=== PATIENT | female | born 1935 | race Caucasian/White ===

== ENCOUNTER 2018-01-07 15:25 | Inpatient (IN) | payer OTHER, BC ==
[2018-01-07] MEDS ORDERED: clonazePAM 0.5 MG TAB PO PRN (16:19)
[2018-01-07] MEDS ORDERED: POLYVINYL ALCOHOL OP PRN (16:21)
[2018-01-07] MEDS ORDERED: BISACODYL 10 MG SUPP PR PRN (16:25)
[2018-01-07] MEDS ORDERED: POLYETHYLENE GLYCOL 3350 17 GM PKT PO PRN (16:25)
[2018-01-07] MEDS ORDERED: TEARS/DEXTRAN 70/HYPROMELLOSE 15 ML OPHT.BTL OP PRN (16:30)
[2018-01-07] MEDS ORDERED: RYTARY PO SCH ×2 (17:15→20:00)
[2018-01-07] MEDS: RYTARY PO SCH ×3 (17:28→21:50)
--- NOTE | 2018-01-07 18:24 | GHP ---
[f rep st] HISTORY AND PHYSICAL POST ADMISSION PHYSICIAN EVALUATION AND REHABILITATION TREATMENT PLAN DATE OF ADMISSION: 01/07/2018 REFERRING FACILITY: [facility]. REFERRING PHYSICIAN: Dr. No IMPAIRMENT GROUP: [id number]. DATE OF ONSET: 01/02/2018. CONSULTING PHYSICIANS: There were none. REHABLITATION DIAGNOSIS: Debility status post pneumonia in a patient with Parkinson disease. ETIOLOGIC DIAGNOSIS: Debility (noncardiac, nonpulmonary). HISTORY OF PRESENT ILLNESS: This patient is an 82-year-old woman with Parkinson disease who was admitted to [facility] on 01/02/2018 with acute hypoxia, tachycardia, and a fever of 103 degrees Fahrenheit. She was diagnosed with right lower lobe pneumonia and influenza A. Vital signs were consistent with sepsis, though blood cultures showed no growth. She was treated with oseltamivir as well as IV ampicillin/sulbactam which was subsequently changed to p.o. amoxicillin/clavulanate and azithromycin. She had stabilization of her respiratory condition and normalization of her labs. She was participating in therapies and appropriate for inpatient rehabilitation. She initially had dysphagia and required thickened liquids, but subsequently, she was able to safely swallow thin liquids. Repeat chest x-ray showed bilateral pleural effusions and patient was assessed to be mildly fluid overloaded, so she received 1 dose of IV Lasix. An echocardiogram was done which showed a small pericardial effusion, a normal ejection fraction, and mildly elevated pulmonary artery pressures. There was trace mitral regurgitation, mild tricuspid regurgitation, and mild aortic regurgitation. Other labs and studies during her stay: she had leukocytosis with a peak white blood cell count at 14, which resolved. She had minimal thrombocytopenia and enoxaparin was discontinued. Thrombocytopenia normalized prior to discharge. Chest x-ray on 01/05/2018, showed bilateral pleural effusions as discussed above as well as underlying atelectasis and consolidation. On 01/06/2017, a basic metabolic profile was within normal limits other than being consistent with mild dehydration with an elevated BUN to creatinine ratio. On the same date, CBC showed a normal white blood cell count at 8.8, and hemoglobin and hematocrit were normal at 12.5 and 38.5. Platelet count was normal at 219. Magnesium was normal at 2.2. PRECAUTIONS: She is a fall risk and she has aspiration precautions. ACTIVE COMORBIDITIES: She has no active tier 1, tier 2, or tier 3 comorbidities. PAST MEDICAL HISTORY: 1. Parkinson disease. She is treated at the [facility]. 2. Cholecystitis. 3. Benign paroxysmal positional vertigo. 4. Dementia with behavioral disturbance. 5. Hyperkalemia. 6. Hypotension. 7. Insomnia. 8. Osteoporosis. 9. Squamous cell carcinoma. PAST SURGICAL HISTORY: 1. She had breast surgery for benign breast masses in 1962 and 1964. 2. section, 1962 and 1964. 3. Cholecystectomy. 4. Eye surgery, bilateral, with removal of cataracts. 5. Hysterectomy in 1984. 6. Laparoscopy in 2013. PRE-HOSPITAL MEDICATIONS: 1. Carbidopa/levodopa (brand-name Rytary) 48.75/195 mg extended release, 2 capsules by mouth b.i.d. at 8 a.m. and 3:30 p.m. and 1 capsule by mouth b.i.d. at noon and 8:30 p.m. 2. Citalopram 10 p.o. qhs. 3. Clonazepam 0.25 mg p.o. q.h.s. p.r.n. insomnia. 4. Vitamin B12 1 p.o. q. day. 5. Artificial Tears p.r.n. 6. Multivitamin p.o. q. day. 7. [place]-3 fatty acids 1000 mg p.o. q. day. 8. Raloxifene 60 mg p.o. q. day. 9. Selegiline 5 mg p.o. b.i.d. 10. Donepezil 10 mg p.o. q.h.s. 11. Melatonin 10 mg p.o. q.h.s. ADMISSION MEDICATIONS: 1. Amoxicillin/clavulanate 875 mg p.o. b.i.d. for 2 more days. 2. Azithromycin 250 mg p.o. q.h.s. for 2 more days. 3. Citalopram 10 mg p.o. q.h.s. 4. Clonazepam 0.25 mg p.o. q.h.s. p.r.n. 5. Cyanocobalamin 100 mcg p.o. q. day. 6. Donepezil 10 mg p.o. q.h.s. 7. Guaifenesin 600 mg p.o. b.i.d. 8. Melatonin 9 mg p.o. q.h.s. p.r.n. 9. Multivitamin 1 p.o. q. day. 10. Rytary 2 tabs b.i.d. at 0800 and 1530 and 1 tablet p.o. b.i.d. at 1200 and 2030. 11. [place]-3 fatty acids 1000 mg p.o. q. day. 12. Oseltamivir 30 mg p.o. b.i.d. with 1 more dose this evening. 13. Raloxifene 60 mg p.o. q. day. 14. Selegiline 5 mg p.o. b.i.d. 15. Artificial Tears p.r.n. ALLERGIES: Listed to amantadine, armodafinil, entacapone, and ropinirole. PSYCHOSOCIAL HISTORY: She is and lives with her . They are in the process of relocating from [place] to [place]. She is a nonsmoker, nondrinker. She is a retired lead teacher. FAMILY HISTORY: Significant for brain cancer in maternal and paternal aunts, breast cancer in a paternal aunt, cardiac disease in her father, stroke in her mother. REVIEW OF SYSTEMS: She denies dyspnea. She reports she still has some cough and chest feels congested. She denies nausea, vomiting, constipation, or diarrhea. She denies dysuria or urinary frequency. She denies vision changes, difficulty swallowing, weakness, numbness or tingling of the extremities. She is not in pain with no headache and no chest pain and no joint pain. She denies dysuria or urinary frequency. She reports her sleep has been interrupted by needing to get up to urinate and she has at times difficulty attaining sleep subsequently. She denies skin rash or skin breakdown. Otherwise, a 10-point review of systems is negative. PHYSICAL EXAM: VITALS: Blood pressure is 124/81, heart rate is 90, respiratory rate is 16, oxygen saturation is 93% on 2 L. Temperature is 36.7 degrees centigrade. Her weight is 62.1 kg for a body mass index of 20.8. GENERAL: This is a well-nourished, well-developed but thin woman, sitting on the edge of the bed, dressed in street clothes, cooperative, and in no acute distress, but with marked dyskinesias. HEENT: Extraocular movements are intact. Pupils are equal, round, and reactive to light. Mucous membranes are moist. Dentition is in good condition. NECK: Supple. HEART: There is a regular rate and rhythm with no murmurs, rubs, or gallops. Heart sounds are somewhat distant. LUNGS: Clear to auscultation bilaterally. ABDOMEN: Soft, nontender, nondistended with normoactive bowel sounds and no hepatosplenomegaly. EXTREMITIES: There is no cyanosis, clubbing, or edema. NEUROLOGIC: She is alert and oriented to the date, the month, and the year. She mistakes the name of the facility for [facility]. There is no focal weakness. Sensation is intact to light touch. Cranial nerves 2 through 12 are grossly intact. She is markedly dyskinetic. She has mild rigidity bilaterally to the upper extremities. She is able to arise from seated to standing independently and spontaneously. Gait was not tested. CURRENT LEVEL OF FUNCTION: Per the pre-admission screen. Regarding diet, feeding, and swallowing, she was on a regular diet with nectar thick liquids. She was instructed to swallow 2 times per each bite or sip, alternating solids and liquids. Regarding toileting, she could transfer with minimal assist with cues for hand placement and minimal assist for hygiene. Bed mobility required standby assist with the head of the bed elevated and the use of rails. She required voice cues for sequencing and safety. Transfers were accomplished with contact guard from the edge of the bed using a front-wheeled walker. Balance required contact guard assist. Endurance was fair. She was able to ambulate 300 feet with a front-wheeled walker. There was scissoring of gait and decreased right lower extremity toe off. She climbed and descended 2 steps with standby assist and bilateral rails. Regarding cognition, she was noted to not be at baseline and requiring cues and assistance for safety. She was considered a fall risk. On current exam, she can transfer with contact standby assist to contact guard for balance safety and she appears to be independent with bed mobility. Otherwise, current exam is consistent with the preadmission screen. IMPRESSION: This is an 82-year-old woman with advanced Parkinson disease and dementia, who had pneumonia and influenza A with sepsis, hypoxia, fever, and mental status changes. She was hospitalized and was treated with intravenous and then oral antibiotics as well as oseltamivir for influenza. She has had improvement in her condition including normalization of white blood cell count and defervescence. She still requires some oxygen. She may be returning to baseline cognitively, though this is difficult to ascertain without historical cognitive testing information. She has debility following her illness. She is appropriate for inpatient rehabilitation. Her goal is to complete a rehabilitation stay and then go home with her and supportive services. For safe discharge, it is anticipated that she will achieve independence with eating and tolerate the least restrictive diet. She will be independent with grooming. She will achieve modified independence for bed mobility, transfers, and ambulation with the least restrictive device for household distances. It is anticipated she will continue to require some assistance for dressing and bathing. She will have therapy with Physical Therapy, Occupational Therapy, and Speech and Language Pathology for 60 minutes per day per discipline on 5-7 days of the week. Her expected duration of stay is 7-10 days. It is anticipated that upon discharge she will continue to benefit from home health services including nursing, speech and language pathology, occupational therapy, and physical therapy. PLAN: 1. Debility, status post hospitalization for pneumonia and influenza A. PT and OT to optimize ADLs and mobility toward independent or modified independent level. Continue Augmentin for 2 more days, azithromycin for 2 more days, and oseltamivir for 1 more dose. Continue oxygen as needed. She will have isolation with droplet precautions for 10 days following on set of treatment or through 01/12/2018. 2. Dementia with delirium due to infection. Assessment and treatment per Speech and Language Pathology. 3. Dysphagia appears to have resolved as she was advanced to thin liquids and regular texture. This will be assessed as well by Speech and Language Pathology. 4. Parkinson disease. Continue current medications. She is noted to be markedly dyskinetic. If her dyskinesias interfere with mobility and activities of daily living, will consult with the [facility] Disorder Clinic at the [facility] regarding medication adjustments. 5. Mild pulmonary hypertension with pleural effusions. This, as well as recovering from pneumonia, may contribute to hypoxemia. She will be monitored in terms of her respiratory function and oxygenation. Consider further imaging and consider diuresis depending on how she progresses. 6. Insomnia. Continue her prior to admission medications with clonazepam and melatonin. If she needs clonazepam on a regular basis, this will be discussed further as it can interfere with balance and with memory; however, if she has been taking it for a prolonged period, it is unlikely that she will be able to discontinue. 7. History of osteoporosis. Continue raloxifene. 8. Dementia. Continue donepezil. Prophylaxis. She has ambulated greater than 300 feet. There is no hemiparesis. It is likely that her risk for DVT is at baseline and so she will not receive any pharmacologic prophylaxis. Will have sequential compression devices to her legs at night when she is in bed. Followup. She is to follow up with her primary care provider, Mercy Read NP, within 1-2 weeks of discharge and she can follow up at the [facility] Clinic at the [facility] as needed. /[id number]/MODL MTDD
--- NOTE | 2018-01-07 19:01 | PDOREHIP ---
Admission [facility] - Admission - 3 Day Assessment Period Admission Date/Day 1: 01/07/18 Day 2: 01/08/18 Day 3: 01/09/18 - Skin Conditions Unhealed Pressure Ulcer (1 or more/Stage 1 or >)-Admission: 0. No
[2018-01-07] MEDS ORDERED: NON-FORMULARY NEW DRUG PO SCH (20:30)
[2018-01-07] MEDS ORDERED: OSELTAMIVIR PHOSPHATE 30 MG PO SCH (21:00)
[2018-01-07] MEDS ORDERED: NON-FORMULARY NEW DRUG (Citalopram Hydrobromide [Celexa 10 Mg] 10 MG) PO SCH (21:00)
[2018-01-07] MEDS: AMOXICILLIN/CLAVULANATE POT 875/125 MG TAB PO SCH (21:51)
[2018-01-07] MEDS: CITALOPRAM 20 MG TAB PO SCH (21:52)
[2018-01-07] MEDS: guaiFENesin 600 MG TAB.ER PO SCH (21:52)
[2018-01-07] MEDS: AZITHROMYCIN 250 MG TAB PO SCH (21:52)
[2018-01-07] MEDS: SELEGILINE HCL 5 MG CAP PO SCH (21:53)
[2018-01-07] MEDS: MELATONIN 3 MG TAB PO PRN (21:56)
[2018-01-07] MEDS: OSELTAMIVIR 6 MG/ML UDSYR PO SCH (21:56)
[2018-01-07] MEDS: DONEPEZIL HCL 5 MG TAB PO SCH (22:00)
[2018-01-08] MEDS: RYTARY PO SCH ×4 (07:25→20:16)
[2018-01-08] MEDS ORDERED: NON-FORMULARY NEW DRUG PO SCH (08:00)
[2018-01-08] MEDS: MULTIVITAMINS 1 EACH TAB PO SCH (08:06)
[2018-01-08] MEDS: CYANO/VITAMIN B12 100 MCG TAB PO SCH (08:06)
[2018-01-08] MEDS: guaiFENesin 600 MG TAB.ER PO SCH ×2 (08:06→20:14)
[2018-01-08] MEDS: OMEGA-3 FATTY ACIDS 1,000 MG CAP PO SCH (08:06)
[2018-01-08] MEDS: AMOXICILLIN/CLAVULANATE POT 875/125 MG TAB PO SCH ×2 (08:06→20:14)
[2018-01-08] MEDS: SELEGILINE HCL 5 MG CAP PO SCH (08:07)
[2018-01-08] MEDS: OSELTAMIVIR 6 MG/ML UDSYR PO SCH ×2 (13:49→20:26)
--- NOTE | 2018-01-08 14:10 | SOAPPROG ---
SOAP Progress Note Assessment/Plan: Assessment: * Debility, status post hospitalization for pneumonia and influenza A. * PT and OT to optimize ADLs and mobility toward independent or modified independent level. * Pneumonia and influenza A. * Continue Augmentin and azithromycin through 01/09/2018. Completed oseltamivir 01/07/2018. Continue oxygen as needed. She will have isolation with droplet precautions for 10 days following onset of treatment, through 01/12/2018. * Dementia with delirium due to infection. * Assessment and treatment per Speech and Language Pathology. * Dysphagia appears to have resolved as she was advanced to thin liquids and regular texture. This will be assessed as well by Speech and Language Pathology. * Parkinson disease. Continue current medications. Intermittently dyskinetic. If her dyskinesias interfere with mobility and activities of daily living, will consult with the [facility] Clinic at the [facility] regarding medication adjustments. Mild pulmonary hypertension with pleural effusions. May contribute to hypoxemia. * She will be monitored in terms of her respiratory function and oxygenation. Consider further imaging and consider diuresis depending on how she progresses. * Insomnia. Continue her prior to admission medications with clonazepam and melatonin. If she needs clonazepam on a regular basis, this will be discussed further as it can interfere with balance and with memory; however, if she has been taking it for a prolonged period, it is unlikely that she will be able to discontinue. * History of osteoporosis. Continue raloxifene. * Dementia. Continue donepezil. Prophylaxis. She has ambulated greater than 300 feet. There is no hemiparesis. It is likely that her risk for DVT is at baseline and so she will not receive any pharmacologic prophylaxis. Will have sequential compression devices to her legs at night when she is in bed. Followup. She is to follow up with her primary care provider, Mercy Read NP, within 1-2 weeks of discharge and she can follow up at the [facility] at the [facility] as needed. 01/08/18 14:33 Subjective: No complaints. Says she slept very well. Not in pain. No cough or dyspnea. Objective: Vital Signs Temp Pulse Resp BP Pulse Ox 36.4 C 76 17 136/81 H 95 01/08/18 07:38 01/08/18 07:38 01/08/18 07:38 01/08/18 07:38 01/08/18 08:30 01/07/18 01/08/18 01/09/18 05:59 05:59 05:59 Intake Total 350 508 Output Total 50 200 Balance 300 308 Physical Exam - Physical Exam General Appearance: WD/WN, alert, no apparent distress Respiratory: normal breath sounds, decreased breath sounds (Bilateral bases), No crackles, No rhonchi, No wheezing Cardiac/Chest: regular rate, rhythm, No edema, No diastolic murmur, No systolic murmur Skin: normal color, warm/dry Neuro/Psych: no motor/sensory deficits, alert, normal mood/affect, oriented x 3 , abnormal gait (Mildly retropulsive when arising from seated to standing. Normal gait with front wheeled walker.), other (No dyskinesia) ICD10 Worksheet Patient Problems: Problems Problem Status Onset Influenza A Acute Parkinson disease Acute Pneumonia Acute
[2018-01-08] MEDS: RALOXIFENE HCL 60 MG TAB PO SCH (15:40)
[2018-01-08] MEDS: MELATONIN 3 MG TAB PO PRN (20:13)
[2018-01-08] MEDS: DONEPEZIL HCL 5 MG TAB PO SCH (20:13)
[2018-01-08] MEDS: CITALOPRAM 20 MG TAB PO SCH (20:14)
[2018-01-08] MEDS: AZITHROMYCIN 250 MG TAB PO SCH (20:17)
[2018-01-09] MEDS: RYTARY PO SCH ×4 (06:48→21:01)
[2018-01-09] MEDS: CYANO/VITAMIN B12 100 MCG TAB PO SCH (07:53)
[2018-01-09] MEDS: guaiFENesin 600 MG TAB.ER PO SCH ×2 (07:53→20:18)
[2018-01-09] MEDS: AMOXICILLIN/CLAVULANATE POT 875/125 MG TAB PO SCH (07:53)
[2018-01-09] MEDS: SELEGILINE HCL 5 MG CAP PO SCH ×2 (07:54→11:17)
[2018-01-09] MEDS: OMEGA-3 FATTY ACIDS 1,000 MG CAP PO SCH (07:54)
[2018-01-09] MEDS: MULTIVITAMINS 1 EACH TAB PO SCH (07:54)
[2018-01-09] MEDS: RALOXIFENE HCL 60 MG TAB PO SCH (07:54)
[2018-01-09] MEDS ORDERED: ALIVE PO SCH (09:00)
[2018-01-09] MEDS ORDERED: MVI PO SCH (09:00)
[2018-01-09] MEDS: CHOLECALCIFEROL VIT D3 2,000 UNITS TAB/CAP PO SCH (11:17)
--- NOTE | 2018-01-09 13:15 | SOAPPROG ---
SOAP Progress Note Assessment/Plan: Assessment: * Debility, status post hospitalization for pneumonia and influenza A. * Per rehab rounds today, patient is standby assist with grooming, standby assist with dressing, needs assistance when tying shoelaces. Standby assist with bathing and toileting. Occupational therapy reports difficulty with hand use and activities require fine motor coordination secondary to a combination of Parkinson's disease and osteoarthritic changes. PHYSICAL THERAPY CONTINUES TO ADDRESS SAFETY AND BALANCE ISSUES. * Pneumonia and influenza A. SHE IS CURRENTLY USING 1 L O2 PER NASAL CANNULA. WHEN TRIED ON ROOM AIR O2 SATURATION DROPPED DOWN TO 87%. * Continue Augmentin and azithromycin through 01/09/2018. Completed oseltamivir 01/07/2018. Continue oxygen as needed. She will have isolation with droplet precautions for 10 days following onset of treatment, through 01/12/2018. * Dementia with delirium due to infection. * Assessment and treatment per Speech and Language Pathology. * Dysphagia appears to have resolved as she was advanced to thin liquids and regular texture. This will be assessed as well by Speech and Language Pathology. Speech therapy reports she is disc fluent with intermittent rapid rate of speech and decreased executive function. Diet continues as regular and she should avoid protein with Parkinson's meds. * Parkinson disease. Continue current medications. Intermittently dyskinetic. If her dyskinesias interfere with mobility and activities of daily living, will consult with the [facility] Disorder Clinic at the [facility] regarding medication adjustments. Mild pulmonary hypertension with pleural effusions. May contribute to hypoxemia. * She will be monitored in terms of her respiratory function and oxygenation. Consider further imaging and consider diuresis depending on how she progresses. * Insomnia. Continue her prior to admission medications with clonazepam and melatonin. If she needs clonazepam on a regular basis, this will be discussed further as it can interfere with balance and with memory; however, if she has been taking it for a prolonged period, it is unlikely that she will be able to discontinue. * History of osteoporosis. Continue raloxifene. * Dementia. Continue donepezil. Prophylaxis. She has ambulated greater than 300 feet. There is no hemiparesis. It is likely that her risk for DVT is at baseline and so she will not receive any pharmacologic prophylaxis. Will have sequential compression devices to her legs at night when she is in bed. DISCUSSED WITH REHAB TEAM THAT DURING HER AND HER 'S IMPENDING MOVE FROM [place] TO [place] WHICH WOULD ENTAIL MOVING OUT OF THEIR HOUSE, SELLING AND/OR MOVING POSSESSIONS AND EXTENSIVE TRAVEL TIME THAT SHE MAY WANT TO STAY WITH FAMILY MEMBERS HERE IN [place] DURING THAT TIME Followup. She is to follow up with her primary care provider, Mercy Read NP, within 1-2 weeks of discharge and she can follow up at the [facility] at the [facility] as needed. Plan: 01/09/18 13:10 Subjective: She does not have any new complaints. No acute problems reported by nursing staff. Objective: Vital Signs Temp Pulse Resp BP Pulse Ox 36.4 C 73 20 114/77 93 01/09/18 06:56 01/09/18 06:56 01/09/18 06:56 01/09/18 06:56 01/09/18 07:58 01/08/18 01/09/18 01/10/18 05:59 05:59 05:59 Intake Total 350 508 Output Total 50 900 300 Balance 300 -392 -300 Physical Exam - Physical Exam Respiratory: lungs clear, normal breath sounds Cardiac/Chest: regular rate, rhythm, No edema Abdomen: non-tender, soft Extremities: other (Left shoulder forward flexion and abduction is decreased compared to the right side and somewhat painful. Positive [place] and Neer's impingement test on the left. Left subacromial region is tender to palpation.) Neuro/Psych: other (No resting tremor noted on today's exam.) ICD10 Worksheet Patient Problems: Problems Problem Status Onset Influenza A Acute Parkinson disease Acute Pneumonia Acute
[2018-01-09] MEDS: CITALOPRAM 20 MG TAB PO SCH (20:19)
[2018-01-09] MEDS: DONEPEZIL HCL 5 MG TAB PO SCH (20:19)
[2018-01-09] MEDS: RYTARY PO PRN (20:55)
[2018-01-10] MEDS: RYTARY PO SCH ×4 (06:27→20:06)
[2018-01-10] MEDS: CYANO/VITAMIN B12 100 MCG TAB PO SCH (08:10)
[2018-01-10] MEDS: guaiFENesin 600 MG TAB.ER PO SCH ×2 (08:10→20:04)
[2018-01-10] MEDS: SELEGILINE HCL 5 MG CAP PO SCH ×2 (08:10→12:26)
[2018-01-10] MEDS: RALOXIFENE HCL 60 MG TAB PO SCH (08:11)
[2018-01-10] MEDS: MULTIVITAMINS 1 EACH TAB PO SCH (08:11)
[2018-01-10] MEDS: OMEGA-3 FATTY ACIDS 1,000 MG CAP PO SCH (08:11)
--- NOTE | 2018-01-10 10:54 | SOAPPROG ---
SOAP Progress Note Assessment/Plan: Assessment: * Debility, status post hospitalization for pneumonia and influenza A. * Per rehab rounds 01/09, patient is standby assist with grooming, standby assist with dressing, needs assistance when tying shoelaces. Standby assist with bathing and toileting. Occupational therapy reports difficulty with hand use and activities require fine motor coordination secondary to a combination of Parkinson's disease and osteoarthritic changes. PHYSICAL THERAPY CONTINUES TO ADDRESS SAFETY AND BALANCE ISSUES. * Pneumonia and influenza A. LUNGS ARE CLEAR TO AUSCULTATION. SHE DOES NOT REPORT SHORTNESS OF BREATH. SHE IS USING THE INCENTIVE SPIROMETER AT LEAST 10 PUFFS PER HOUR. SHE IS CURRENTLY USING 1 L O2 PER NASAL CANNULA. WHEN TRIED ON ROOM AIR O2 SATURATION DROPPED DOWN TO 87%. * Continue Augmentin and azithromycin through 01/09/2018. Completed oseltamivir 01/07/2018. Continue oxygen as needed. She will have isolation with droplet precautions for 10 days following onset of treatment, through 01/12/2018. * Dementia with delirium due to infection. * Assessment and treatment per Speech and Language Pathology. * Dysphagia appears to have resolved as she was advanced to thin liquids and regular texture. This will be assessed as well by Speech and Language Pathology. Speech therapy reports she is disc fluent with intermittent rapid rate of speech and decreased executive function. Diet continues as regular and she should avoid protein with Parkinson's meds. * Parkinson disease. Continue current medications. Intermittently dyskinetic. If her dyskinesias interfere with mobility and activities of daily living, will consult with the [facility] Disorder Clinic at the [facility] regarding medication adjustments. Mild pulmonary hypertension with pleural effusions. Lungs current we clear to auscultation * Insomnia. Continue her prior to admission medications with clonazepam and melatonin. If she needs clonazepam on a regular basis, this will be discussed further as it can interfere with balance and with memory; however, if she has been taking it for a prolonged period, it is unlikely that she will be able to discontinue. * History of osteoporosis. Continue raloxifene. * Dementia. Continue donepezil. * DVT Prophylaxis. She has ambulated greater than 300 feet. There is no hemiparesis. It is likely that her risk for DVT is at baseline and so she will not receive any pharmacologic prophylaxis. Will have sequential compression devices to her legs at night when she is in bed. * LEFT SHOULDER PAIN-OCCUPATIONAL THERAPY IS WORKING WITH HER FOR PENDULUM AND ROTATOR CUFF STRENGTHENING EXERCISES. WE WILL CONSIDER LOW-DOSE NONSTEROIDAL ANTI-INFLAMMATORY MEDICATION IF SHOULDER PAIN PERSISTS. OTHERWISE SHE CAN TAKE TYLENOL 500-650 Q 6 HR NEEDED FOR PAIN DISCUSSED WITH REHAB TEAM THAT DURING HER AND HER 'S IMPENDING MOVE FROM [place] TO [place] WHICH WOULD ENTAIL MOVING OUT OF THEIR HOUSE, SELLING AND/OR MOVING POSSESSIONS AND EXTENSIVE TRAVEL TIME THAT SHE MAY WANT TO STAY WITH FAMILY MEMBERS HERE IN [place] DURING THAT TIME Followup. She is to follow up with her primary care provider, Mercy Read NP, within 1-2 weeks of discharge and she can follow up at the [facility] Clinic at the [facility] as needed. Plan: 01/09/18 13:10 01/10/18 10:52 Subjective: NO NEW COMPLAINTS THIS MORNING. NO COMPLAINTS PER NURSING STAFF. Objective: Vital Signs Temp Pulse Resp BP Pulse Ox 36.7 C 72 15 101/65 92 01/10/18 08:00 01/10/18 08:00 01/10/18 08:00 01/10/18 08:00 01/10/18 10:18 01/09/18 01/10/18 01/11/18 05:59 05:59 05:59 Intake Total 508 1100 480 Output Total 900 700 250 Balance -392 400 230 Physical Exam - Physical Exam General Appearance: WD/WN, alert, no apparent distress Respiratory: lungs clear, normal breath sounds Cardiac/Chest: No edema Abdomen: non-tender, soft Skin: warm/dry Extremities: No swelling, No Jayla's sign Neuro/Psych: other (RESTING PARKINSONIAN TREMOR. 4/5 STRENGTH UPPER AND LOWER EXTREMITIES.) ICD10 Worksheet Patient Problems: Problems Problem Status Onset Influenza A Acute Parkinson disease Acute Pneumonia Acute
[2018-01-10] MEDS: CHOLECALCIFEROL VIT D3 2,000 UNITS TAB/CAP PO SCH (12:26)
[2018-01-10] MEDS: CITALOPRAM 20 MG TAB PO SCH (20:04)
[2018-01-10] MEDS: DONEPEZIL HCL 5 MG TAB PO SCH (20:04)
[2018-01-11] MEDS: RYTARY PO SCH ×4 (06:27→20:24)
[2018-01-11] MEDS: SELEGILINE HCL 5 MG CAP PO SCH ×2 (07:20→12:33)
[2018-01-11] MEDS: CYANO/VITAMIN B12 100 MCG TAB PO SCH (08:15)
[2018-01-11] MEDS: RALOXIFENE HCL 60 MG TAB PO SCH (08:15)
[2018-01-11] MEDS: guaiFENesin 600 MG TAB.ER PO SCH ×2 (08:15→20:24)
[2018-01-11] MEDS: OMEGA-3 FATTY ACIDS 1,000 MG CAP PO SCH (08:15)
[2018-01-11] MEDS: MULTIVITAMINS 1 EACH TAB PO SCH (08:15)
--- NOTE | 2018-01-11 12:04 | SOAPPROG ---
SOAP Progress Note Assessment/Plan: Assessment: * Debility, status post hospitalization for pneumonia and influenza A. * Per rehab rounds 01/09, patient is standby assist with grooming, standby assist with dressing, needs assistance when tying shoelaces. Standby assist with bathing and toileting. Occupational therapy reports difficulty with hand use and activities require fine motor coordination secondary to a combination of Parkinson's disease and osteoarthritic changes. PHYSICAL THERAPY CONTINUES TO ADDRESS SAFETY AND BALANCE ISSUES. * Pneumonia and influenza A. Pulmonary status remains clear. No complaints of shortness of breath. * Continue Augmentin and azithromycin through 01/09/2018. Completed oseltamivir 01/07/2018. Continue oxygen as needed. She will have isolation with droplet precautions for 10 days following onset of treatment, through 01/12/2018. * Dementia with delirium due to infection. * Assessment and treatment per Speech and Language Pathology. * Dysphagia -will ask speech therapy to perform an updated swallowing evaluation to make sure she is not having silent aspiration. * Parkinson disease. Her dyskinesias are worse this morning but apparently the dosage of her medication and the timing of her medications have not been changed but I will discuss this further with nursing. I did confirm with Pharmacy that she has brought in her Parkinson's medications from home and this is what is being given to her. This includes the Rytary 48.75/195 2 p.o. 7:00 a.m., 1 p. o. 11:00 a.m., 1 p. o. 3:00 p.m. And 1 p.o. 8:00 p.m. and the Selegiline 5 mg twice daily If her dyskinesias interfere with mobility and activities of daily living, will consult with the Movement Disorder Clinic at the [facility] regarding medication adjustments. Mild pulmonary hypertension with pleural effusions. Lungs current we clear to auscultation * Insomnia. Continue her prior to admission medications with clonazepam and melatonin. If she needs clonazepam on a regular basis, this will be discussed further as it can interfere with balance and with memory; however, if she has been taking it for a prolonged period, it is unlikely that she will be able to discontinue. * History of osteoporosis. Continue raloxifene. * Dementia. Continue donepezil. * DVT Prophylaxis. She has ambulated greater than 300 feet. There is no hemiparesis. It is likely that her risk for DVT is at baseline and so she will not receive any pharmacologic prophylaxis. Will have sequential compression devices to her legs at night when she is in bed. * LEFT SHOULDER PAIN-OCCUPATIONAL THERAPY IS WORKING WITH HER FOR PENDULUM AND ROTATOR CUFF STRENGTHENING EXERCISES. WE WILL CONSIDER LOW-DOSE NONSTEROIDAL ANTI-INFLAMMATORY MEDICATION IF SHOULDER PAIN PERSISTS. OTHERWISE SHE CAN TAKE TYLENOL 500-650 Q 6 HR NEEDED FOR PAIN DISCUSSED WITH REHAB TEAM THAT DURING HER AND HER 'S IMPENDING MOVE FROM [place] TO [place] WHICH WOULD ENTAIL MOVING OUT OF THEIR HOUSE, SELLING AND/OR MOVING POSSESSIONS AND EXTENSIVE TRAVEL TIME THAT SHE MAY WANT TO STAY WITH FAMILY MEMBERS HERE IN [place] DURING THAT TIME Followup. She is to follow up with her primary care provider, Mercy Read NP, within 1-2 weeks of discharge and she can follow up at the Movement Disorder Clinic at the [facility] as needed. Plan: 01/09/18 13:10 01/10/18 10:52 01/11/18 12:05 Subjective: She reports that she has a little bit more disconnected type movement today and feels that it is due to a possible change in her medication. She states that this usually happens when the brand name of her medication is changed. Objective: Vital Signs Temp Pulse Resp BP Pulse Ox 36.7 C 82 15 127/75 H 95 01/11/18 05:54 01/11/18 10:55 01/11/18 05:54 01/11/18 05:54 01/11/18 10:55 01/10/18 01/11/18 01/12/18 05:59 05:59 05:59 Intake Total 1100 970 360 Output Total 700 850 Balance 400 120 360 Physical Exam - Physical Exam General Appearance: WD/WN, alert, no apparent distress Respiratory: chest non-tender, lungs clear Cardiac/Chest: No edema Abdomen: non-tender, soft Skin: normal color Neuro/Psych: other (More dyskinetic movement today in upper extremity and trunk muscles. Normal in pain free range of motion both shoulders, elbows and wrists. ) ICD10 Worksheet Patient Problems: Problems Problem Status Onset Influenza A Acute Parkinson disease Acute Pneumonia Acute
[2018-01-11] MEDS: CHOLECALCIFEROL VIT D3 2,000 UNITS TAB/CAP PO SCH (12:33)
[2018-01-11] MEDS: CITALOPRAM 20 MG TAB PO SCH (20:24)
[2018-01-11] MEDS: DONEPEZIL HCL 5 MG TAB PO SCH (20:24)
[2018-01-12] MEDS: RYTARY PO SCH ×4 (06:58→20:53)
[2018-01-12] MEDS: SELEGILINE HCL 5 MG CAP PO SCH ×2 (08:02→12:07)
[2018-01-12] MEDS: RALOXIFENE HCL 60 MG TAB PO SCH (08:04)
[2018-01-12] MEDS: CYANO/VITAMIN B12 100 MCG TAB PO SCH (08:04)
[2018-01-12] MEDS: OMEGA-3 FATTY ACIDS 1,000 MG CAP PO SCH (08:04)
[2018-01-12] MEDS: guaiFENesin 600 MG TAB.ER PO SCH ×2 (08:04→20:51)
[2018-01-12] MEDS: MULTIVITAMINS 1 EACH TAB PO SCH (08:04)
[2018-01-12] MEDS: CHOLECALCIFEROL VIT D3 2,000 UNITS TAB/CAP PO SCH (12:07)
--- NOTE | 2018-01-12 17:37 | SOAPPROG ---
SOAP Progress Note Assessment/Plan: Assessment: * Debility, status post hospitalization for pneumonia and influenza A. * Per rehab rounds 01/09, patient is standby assist with grooming, standby assist with dressing, needs assistance when tying shoelaces. Standby assist with bathing and toileting. Occupational therapy reports difficulty with hand use and activities require fine motor coordination secondary to a combination of Parkinson's disease and osteoarthritic changes. PHYSICAL THERAPY CONTINUES TO ADDRESS SAFETY AND BALANCE ISSUES. * Pneumonia and influenza A. Pulmonary status remains clear. No complaints of shortness of breath. * Continue Augmentin and azithromycin through 01/09/2018. Completed oseltamivir 01/07/2018. Continue oxygen as needed. She will have isolation with droplet precautions for 10 days following onset of treatment, through 01/12/2018. * Dementia with delirium due to infection. * Assessment and treatment per Speech and Language Pathology. * Dysphagia -will ask speech therapy to perform an updated swallowing evaluation to make sure she is not having silent aspiration. * Parkinson disease. Her dyskinesias ARE BETTER THIS MORNING. SHE APPARENTLY RECEIVED 2 OF HER EVENING/NIGHT DOSES TOO CLOSE TOGETHER. HER PARKINSON'S MEDICATIONS INCLUDE Rytary 48.75/195 2 p.o. 7:00 a.m., 1 p. o. 11:00 a.m., 1 p. o. 3:00 p.m. and 1 p.o. 8:00 p.m. and the Selegiline 5 mg twice daily. She is planning on seeing her neurologist in [place] to help modify her medication regime. Mild pulmonary hypertension with pleural effusions. Lungs current we clear to auscultation * Insomnia. Continue her prior to admission medications with clonazepam and melatonin. If she needs clonazepam on a regular basis, this will be discussed further as it can interfere with balance and with memory; however, if she has been taking it for a prolonged period, it is unlikely that she will be able to discontinue. * History of osteoporosis. Continue raloxifene. * Dementia. Continue donepezil. * DVT Prophylaxis. She has ambulated greater than 300 feet. There is no hemiparesis. It is likely that her risk for DVT is at baseline and so she will not receive any pharmacologic prophylaxis. Will have sequential compression devices to her legs at night when she is in bed. * LEFT SHOULDER PAIN-OCCUPATIONAL THERAPY IS WORKING WITH HER FOR PENDULUM AND ROTATOR CUFF STRENGTHENING EXERCISES. WE WILL CONSIDER LOW-DOSE NONSTEROIDAL ANTI-INFLAMMATORY MEDICATION IF SHOULDER PAIN PERSISTS. OTHERWISE SHE CAN TAKE TYLENOL 500-650 Q 6 HR NEEDED FOR PAIN DISCUSSED WITH REHAB TEAM THAT DURING HER AND HER 'S IMPENDING MOVE FROM [place] TO [place] WHICH WOULD ENTAIL MOVING OUT OF THEIR HOUSE, SELLING AND/OR MOVING POSSESSIONS AND EXTENSIVE TRAVEL TIME THAT SHE MAY WANT TO STAY WITH FAMILY MEMBERS HERE IN [place] DURING THAT TIME Followup. She is to follow up with her primary care provider, Mercy Read NP, within 1-2 weeks of discharge and she can follow up at the Movement Disorder Clinic at the [facility] as needed. Plan: 01/09/18 13:10 01/10/18 10:52 01/11/18 12:05 01/12/18 17:33 Subjective: SHE HAS NO NEW COMPLAINTS. SHE HAS MUCH LESS DYSKINESIAS TODAY BECAUSE HER ADJUSTED HER PARKINSON'S MEDS, APPARENTLY SHE GOT 2 DOSES THAT WERE TOO CLOSE TOGETHER. Objective: Vital Signs Temp Pulse Resp BP Pulse Ox 37.0 C 67 16 153/93 H 92 01/12/18 06:33 01/12/18 06:33 01/12/18 06:33 01/12/18 06:33 01/12/18 06:33 01/11/18 01/12/18 01/13/18 05:59 05:59 05:59 Intake Total 970 2250 350 Output Total 850 500 525 Balance 120 1750 -175 Physical Exam - Physical Exam General Appearance: no apparent distress Respiratory: chest non-tender, lungs clear Cardiac/Chest: No edema Abdomen: non-tender, soft Skin: warm/dry Neuro/Psych: other (MUCH LESS DYSKINETIC MOVEMENT TODAY. MILD COGWHEEL RIGIDITY NOTED BOTH UPPER EXTREMITIES.) ICD10 Worksheet Patient Problems: Problems Problem Status Onset Influenza A Acute Parkinson disease Acute Pneumonia Acute
[2018-01-12] MEDS: CITALOPRAM 20 MG TAB PO SCH (20:52)
[2018-01-12] MEDS: DONEPEZIL HCL 5 MG TAB PO SCH (20:52)
[2018-01-13] MEDS: RYTARY PO SCH ×4 (06:23→20:51)
[2018-01-13] MEDS: CYANO/VITAMIN B12 100 MCG TAB PO SCH (08:10)
[2018-01-13] MEDS: RALOXIFENE HCL 60 MG TAB PO SCH (08:10)
[2018-01-13] MEDS: OMEGA-3 FATTY ACIDS 1,000 MG CAP PO SCH (08:10)
[2018-01-13] MEDS: MULTIVITAMINS 1 EACH TAB PO SCH (08:10)
[2018-01-13] MEDS: guaiFENesin 600 MG TAB.ER PO SCH ×2 (08:10→20:49)
[2018-01-13] MEDS: SELEGILINE HCL 5 MG CAP PO SCH ×2 (08:10→12:10)
[2018-01-13] MEDS: CHOLECALCIFEROL VIT D3 2,000 UNITS TAB/CAP PO SCH (12:10)
--- NOTE | 2018-01-13 13:16 | SOAPPROG ---
SOAP Progress Note Assessment/Plan: Assessment: * Debility, status post hospitalization for pneumonia and influenza A. * Per rehab rounds 01/09, patient is standby assist with grooming, standby assist with dressing, needs assistance when tying shoelaces. Standby assist with bathing and toileting. Occupational therapy reports difficulty with hand use and activities require fine motor coordination secondary to a combination of Parkinson's disease and osteoarthritic changes. * PT and OT to optimize ADLs and mobility toward independent or modified independent level. * Pneumonia and influenza A. * Completed Augmentin and azithromycin through 01/09/2018. Completed oseltamivir 01/07/2018. Continue oxygen as needed; not used since 01/11/2018. Isolation with droplet precautions discontinued 01/12/2018. * Dementia with delirium due to infection. * Moderate deficits to attention, communication, executive function, memory, problem solving and reasoning. Mild dysarthria and mild to moderate expressive aphasia. * Continue Speech and Language Pathology. * Parkinson disease. Continue current medications. Intermittently dyskinetic. If her dyskinesias interfere with mobility and activities of daily living, will consult with the Movement Disorder Clinic at the [facility] regarding medication adjustments. * Insomnia & night sweats. * Wonder if selegeline + citalopram give excess serotonergic stimulation. Will decrease citalopram to 5 mg QHS. 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 * Check CBC re possible conitnued infection; check TSH re diaphoresis. * Continue PRN clonazepam and melatonin she and her are cautious about clonazepam as an of the adverse effects regarding balance and risk of falls. Chronic/stable conditions: * Dysphagia, resolved. Continue thin liquids and regular texture. Mild pulmonary hypertension with pleural effusions. May contribute to hypoxemia. * She will be monitored in terms of her respiratory function and oxygenation. Consider further imaging and consider diuresis depending on how she progresses. * History of osteoporosis. Continue raloxifene. * Dementia. Continue donepezil. Prophylaxis. She has ambulated greater than 300 feet. There is no hemiparesis. It is likely that her risk for DVT is at baseline and so she will not receive any pharmacologic prophylaxis. Will have sequential compression devices to her legs at night when she is in bed. Discharge planned for 01/15/2018. may seek respite care for patient as he needs to return to [place] 01/31/2018 to continue move from [place] to [place]. Followup. She is to follow up with her primary care provider, Mercy Read NP, within 1-2 weeks of discharge and she can follow up at the Movement Disorder Clinic at the [facility] as needed. 01/13/18 12:49 Subjective: Reports that sleep was interrupted by dyskinesias. She also awakens and finds her bed clothes wet from sweat. She then finds it difficult to get back to sleep. She still has some coughing but no dyspnea and no sputum. No fevers or chills. No dysuria, urinary frequency or flank pain. Objective: Vital Signs Temp Pulse Resp BP Pulse Ox 36.7 C 63 14 121/75 H 93 01/13/18 06:28 01/13/18 06:28 01/13/18 06:28 01/12/18 18:20 01/13/18 06:28 01/12/18 01/13/18 01/14/18 05:59 05:59 05:59 Intake Total 2250 960 Output Total 500 525 Balance 1750 435 Physical Exam - Physical Exam General Appearance: WD/WN, alert, no apparent distress Respiratory: normal breath sounds, No crackles, No rhonchi, No wheezing Cardiac/Chest: regular rate, rhythm, No edema, No diastolic murmur, No systolic murmur Skin: normal color, warm/dry Neuro/Psych: alert, normal mood/affect, No motor weakness ICD10 Worksheet Patient Problems: Problems Problem Status Onset Influenza A Acute Parkinson disease Acute Pneumonia Acute
[2018-01-13] MEDS: DONEPEZIL HCL 5 MG TAB PO SCH (20:49)
[2018-01-13] MEDS: CITALOPRAM 20 MG TAB PO SCH (20:50)
[2018-01-14] MEDS: RYTARY PO SCH ×4 (06:37→20:00)
[2018-01-14 08:11] LABS: PLATELET COUNT 367 10^3/uL (150-400)
[2018-01-14] MEDS: OMEGA-3 FATTY ACIDS 1,000 MG CAP PO SCH (08:55)
[2018-01-14] MEDS: SELEGILINE HCL 5 MG CAP PO SCH ×2 (08:55→12:16)
[2018-01-14] MEDS: RALOXIFENE HCL 60 MG TAB PO SCH (08:55)
[2018-01-14] MEDS: MULTIVITAMINS 1 EACH TAB PO SCH (08:55)
[2018-01-14] MEDS: CYANO/VITAMIN B12 100 MCG TAB PO SCH (08:55)
[2018-01-14] MEDS: guaiFENesin 600 MG TAB.ER PO SCH ×2 (08:55→19:57)
[2018-01-14] MEDS: CHOLECALCIFEROL VIT D3 2,000 UNITS TAB/CAP PO SCH (12:16)
--- NOTE | 2018-01-14 14:03 | SOAPPROG ---
SOAP Progress Note Assessment/Plan: Assessment: * Debility, status post hospitalization for pneumonia and influenza A. * Per rehab rounds 01/09, patient is standby assist with grooming, standby assist with dressing, needs assistance when tying shoelaces. Standby assist with bathing and toileting. Occupational therapy reports difficulty with hand use and activities require fine motor coordination secondary to a combination of Parkinson's disease and osteoarthritic changes. * Has advanced to independent in her room with no device 7:00 a.m. to 7:00 p.m.. * PT and OT to optimize ADLs and mobility toward independent or modified independent level. * Pneumonia and influenza A. * Completed Augmentin and azithromycin through 01/09/2018. Completed oseltamivir 01/07/2018. Continue oxygen as needed; not used since 01/11/2018. Isolation with droplet precautions discontinued 01/12/2018. * Dementia with delirium due to infection. * Moderate deficits to attention, communication, executive function, memory, problem solving and reasoning. Mild dysarthria and mild to moderate expressive aphasia. * Continue Speech and Language Pathology. * Parkinson disease. Continue current medications. Intermittently dyskinetic. If her dyskinesias interfere with mobility and activities of daily living, will consult with the Movement Disorder Clinic at the [facility] regarding medication adjustments. * Insomnia & night sweats. * Wonder if selegeline + citalopram give excess serotonergic stimulation. Symptoms improved with decreased citalopram to 5 mg QHS from 10 mg at bedtime. 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 * CBC 01/14/2018 with improved leukocytosis. TSH within normal limits. * Continue PRN clonazepam and melatonin. She and her are cautious about clonazepam regarding adverse effects regarding balance and risk of falls. Chronic/stable conditions: * Dysphagia, resolved. Continue thin liquids and regular texture. Mild pulmonary hypertension with pleural effusions. May contribute to hypoxemia. * She will be monitored in terms of her respiratory function and oxygenation. Consider further imaging and consider diuresis depending on how she progresses. * History of osteoporosis. Continue raloxifene. * Dementia. Continue donepezil. Prophylaxis. She has ambulated greater than 300 feet. There is no hemiparesis. It is likely that her risk for DVT is at baseline and so she will not receive any pharmacologic prophylaxis. Will have sequential compression devices to her legs at night when she is in bed. Discharge planned for 01/15/2018. 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 may seek respite care for patient as he needs to return to [place] 01/31/2018 to continue move from [place] to [place]. Followup. She is to follow up with her primary care provider, Mercy Read NP, within 1-2 weeks of discharge and she can follow up at the Movement Disorder Clinic at the [facility] as needed. 01/14/18 13:59 Subjective: No complaints. Slept much better last night without awakening with sweats. Therapy staff have been concerned about her left shoulder but she reports that it feels better she has some minor discomfort on the upper left chest with movement at the shoulder. Objective: Vital Signs Temp Pulse Resp BP Pulse Ox 36.3 C 83 16 107/69 95 01/14/18 08:00 01/14/18 08:00 01/14/18 08:00 01/14/18 08:00 01/14/18 08:00 Laboratory Results 01/14/18 06:00 01/13/18 01/14/18 01/15/18 05:59 05:59 05:59 Intake Total 960 368 Output Total 525 375 Balance 435 -7 Physical Exam - Physical Exam General Appearance: WD/WN, alert, no apparent distress Respiratory: No respiratory distress, No accessory muscle use Skin: normal color, warm/dry Extremities: normal range of motion (Full range of motion at the shoulder) Neuro/Psych: alert, normal mood/affect, aphasia (Prominent word-finding difficulties) ICD10 Worksheet Patient Problems: Problems Problem Status Onset Influenza A Acute Parkinson disease Acute Pneumonia Acute
--- NOTE | 2018-01-14 14:24 | PDOREHIP ---
Admission [facility] - Admission - 3 Day Assessment Period Admission Date/Day 1: 01/07/18 Day 2: 01/08/18 Day 3: 01/09/18 Discharge [facility] - Discharge - 3 Day Assessment Period 2 Days Prior to Anticipated Discharge Date: 01/13/18 1 Day Prior to Anticipated Discharge Date: 01/14/18 Anticipated Discharge Date: 01/15/18 - Discharge Skin Conditions Unhealed Pressure Ulcer (1 or more/Stage 1 or >)-Discharge: 0. No
[2018-01-14] MEDS: DONEPEZIL HCL 5 MG TAB PO SCH (19:57)
[2018-01-14] MEDS: CITALOPRAM 20 MG TAB PO SCH (19:57)
[2018-01-14] MEDS: RYTARY PO PRN (20:00)
[2018-01-14 20:19] VITALS: BP 129/77; RESP 14; TEMP 97.1; O2SAT 93
[2018-01-15] MEDS: RYTARY PO SCH ×2 (06:58→11:23)
[2018-01-15] MEDS: CYANO/VITAMIN B12 100 MCG TAB PO SCH (09:34)
[2018-01-15] MEDS: MULTIVITAMINS 1 EACH TAB PO SCH (09:35)
[2018-01-15] MEDS: SELEGILINE HCL 5 MG CAP PO SCH ×2 (09:35→12:01)
[2018-01-15] MEDS: guaiFENesin 600 MG TAB.ER PO SCH (09:35)
[2018-01-15] MEDS: OMEGA-3 FATTY ACIDS 1,000 MG CAP PO SCH (09:35)
[2018-01-15] MEDS: RALOXIFENE HCL 60 MG TAB PO SCH (09:35)
[2018-01-15 09:46] VITALS: PULSE 76
[2018-01-15] MEDS: CHOLECALCIFEROL VIT D3 2,000 UNITS TAB/CAP PO SCH (12:01)
--- NOTE | 2018-01-15 14:55 | GDS ---
[f rep st] DISCHARGE SUMMARY ADMITTING DIAGNOSIS: Pneumonia and Parkinson disease. DISCHARGE DIAGNOSIS: Pneumonia and Parkinson disease. CONSULTATIONS: None. PROCEDURES: None. COMPLICATIONS: None. HISTORY AND HOSPITAL COURSE: This patient was admitted from [facility] in [facility]. She had presented there on 01/02/2018 with acute hypoxia, tachycardia, and a fever of 103 degrees Fahrenheit. She was diagnosed with right lower lobe pneumonia and influenza A. She was treated with Unasyn and oseltamivir initially and was changed to p.o. Augmentin and azithromycin as well as completing the course of oseltamivir. With her respiratory condition stabilized. She was participating in therapy and appropriate for inpatient rehabilitation. She did well in rehabilitation. Initially, she was requiring standby assistance with grooming and dressing with more assistance to tie shoelaces, standby assist with bathing and toileting, and difficulty with fine motor coordination. Physical Therapy worked with her on safety and balance issues. Ultimately, she was independent with mobility in her room and independent with activities of daily living. She was ambulating in her room and on the unit with no assistive device. She continued to have alarms at night. It was understood that per her usual habit, her generally accompanies her to the bathroom when she has to be up at night, but she is able to make her way back on her own. She had dysphagia in the hospital. She was seen by Speech Therapy and was advanced to a regular diet with thin liquids. She had dementia due to her Parkinson disease. She had delirium while in the hospital. She was seen by Speech Therapy and assessed to have moderate deficits in attention, communication, executive function, memory, problem solving, and reasoning. There was [id number] expressive aphasia with word-finding difficulties. Due to cognitive issues, she is in need of continuous supervision for safety. Regarding Parkinson disease, she was considered continued on her medications. She was noted to be intermittently dyskinetic, but the dyskinesias did not in interfere with mobility and activities of daily living. She reported insomnia and night sweats. TSH and CBC were not consistent with hyperthyroidism or infection, though she had a mildly elevated white blood cell count at 9.7, which was improved from during her hospitalization. Combination of selegiline and citalopram was considered. Possibly etiologic. She took her citalopram typically at bedtime. Citalopram was decreased from 10 mg to 5 mg and she ceased to have these symptoms on her last 2 nights on the inpatient rehabilitation unit. In the hospital, she had an echocardiogram and chest x-rays that showed mild pulmonary hypertension and pleural effusions. Her hypoxemia resolved. Consider further evaluation of pulmonary hypertension after discharge. LABORATORY DATA: Other laboratories and studies during her stay, CBC on 2017, had elevated white blood cell count and otherwise was within normal limits and TSH was normal at 1.47. PHYSICAL EXAM: VITAL SIGNS: On the day of discharge, blood pressure is 129/77, heart rate is 84, respiratory rate is 14, oxygen saturation is 93% on room air. Temperature is 36.2 degrees centigrade. Her weight is 62.1 kg for a body mass index of 20.8. GENERAL: This is a well-nourished, well-developed woman sitting in a wheelchair. Ready for discharge. Dressed in street clothes and light jacket. Cooperative and in no acute distress. HEART: regular rate and rhythm with no murmurs, rubs, or gallops. LUNGS: Clear to auscultation bilaterally. ABDOMEN: Benign. EXTREMITIES: There is no edema. NEUROLOGIC: She is alert and oriented x3. Cranial nerves 2-12 are grossly intact. There is no weakness. Sensation is intact to light touch. Gait was recently observed and is essentially normal with no assistive devices. There are no dyskinesias at present. DISCHARGE PLAN: Condition upon discharge is good. ACTIVITY: Ad chiquis, but no driving, continuous supervision for safety, and assistance night when getting out of bed, for instance to go to the bathroom. DIET: Regular. FOLLOWUP: Date of next appointment: She has followup scheduled with primary care provider, nurse practitioner, Mercy Read, in [place], and she will follow up with [facility] on an as-needed basis. MEDICATIONS AT DISCHARGE: 1. Artificial tears daily p.r.n. 2. Multivitamin p.o. daily. 3. Fish oil 1000 mg p.o. daily. 4. Cyanocobalamin 100 mcg p.o. daily. 5. Melatonin 9 mg p.o. at bedtime p.r.n. 6. Clonazepam 0.25 mg p.o. q.8h p.r.n., at bedtime p.r.n. 7. Selegiline 5 mg p.o. twice daily. 8. Raloxifene 60 mg p.o. daily. 9. Polyethylene glycol 17 g p.o. daily p.r.n. 10. Donepezil 10 mg p.o. at bedtime. 11. Citalopram 5 mg p.o. at bedtime. 12. Cholecalciferol 2000 units p.o. daily. 13. Carbidopa/levodopa.(Rytary 48.5/195) two tablets p.o. daily at 0700, one tablet p.o. three times daily at 1100, 1500, and 2000, and one tablet p.o. daily at 0200 p.r.n. ISSUES: To be addressed at followup: 1. 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 She should have supervision for safety with mobility and activities daily living. 2. Respiratory status as normalized and there is no need for specific followup. 3. Parkinson disease. She will follow up as needed with the movement Disorder Clinic at the [facility]. 4. Insomnia and night sweats, which seems to have resolved with reduction of citalopram, indicating that it was due to interaction between citalopram and selegiline with excess serotonergic effect. Question whether or not she needs to continue on citalopram at all. She can raise this issue with her primary care provider as well as the Movement Disorder clinic. 5. Mild pulmonary hypertension. May have been related to her respiratory status. If she has hypoxemia or any other symptoms in the future, a repeat echocardiogram and other evaluations would be indicated. Copy requested to: Movement Disorder Clinic, [facility] . [facility] /[id number]/MODL [id number]
== END 2018-01-15 13:35 | disposition home health service (06) | DRG 945 ==
LOC: BREH 15:25
PROVIDERS: ADMIT Internal Medicine; ATTEND Internal Medicine
DX: Z51.89 Encounter for other specified aftercare (principal); R53.81 Other malaise; J10.00 Influenza due to other identified influenza virus with unspecified type of pneumonia; R09.02 Hypoxemia; G20 Parkinson's disease; F02.80 Dementia in other diseases classified elsewhere, unspecified severity, without behavioral disturbance, psychotic disturbance, mood disturbance, and anxiety; M81.0 Age-related osteoporosis without current pathological fracture; G47.00 Insomnia, unspecified; Z85.828 Personal history of other malignant neoplasm of skin; M85.80 Other specified disorders of bone density and structure, unspecified site
CPT/HCPCS: 92507-GN; 92522-GN; 92610-GN; 97110-GO; 97110-GP; 97112-GP; 97116-GP; 97162-GP; 97166-GO; 97530-GO; 97530-GP; 97535-GO